=== PATIENT | female | born 1990 | race Caucasian/White ===

== ENCOUNTER 2020-12-09 15:18 | Emergency (ER) | payer OTHER, SELFPAY ==
--- NOTE | 2020-12-09 15:22 | ED.GENADULT ---
HPI - General Adult General Chief complaint: Ear Stated complaint: Possible Ear Infection Time Seen by Provider: 12/09/20 15:22 Source: patient Mode of arrival: ambulatory Limitations: no limitations History of Present Illness HPI narrative: 30-year-old female patient presents to the [facility] with complaints of right ear pain. Patient states is been an intermittent pain for the past 2 weeks. Patient states it has become more painful yesterday and today. Patient states she has also had some runny nose and stuffy nose. Patient also reports sinus issues for the last 2 weeks. Patient currently is 24 weeks . Patient states she has taken some Tylenol but denies any other medications at this time. Denies any fevers, body aches or chills. Related Data Home Medications Medication Instructions Recorded Confirmed [id number] ac-omg3 1 pkg PO DAILY 12/09/20 12/09/20 [[place] PHELAN] Allergies Allergy/AdvReac Type Severity Reaction Status Date / Time No Known Allergies Allergy Verified 12/09/20 15:20 Review of Systems Review of Systems: Narrative: CONSTITUTIONAL: Denies fever, chills, or sweats. EYES: Denies visual changes, redness, or discharge. ENT: Positive rhinorrhea, congestion, denies sore throat, positive right otalgia. CARDIOVASCULAR: Denies chest pain, palpitations, or edema. RESPIRATORY: Denies cough or dyspnea. GASTROINTESTINAL: Denies abdominal pain, nausea, vomiting, or diarrhea. GENITOURINARY: Denies dysuria or hematuria. SKIN: Denies rash or itching. MUSCULOSKELETAL: Denies back pain, joint pain, or myalgia. NEUROLOGIC: Denies headache, numbness, or weakness. PSYCHIATRIC: Denies anxiety or depression. [facility] Past Medical History Medical History (Updated 12/09/20 @ 15:39 by WILBUR Crandall) Depression Oligohydramnios Family History Family History (Updated 12/09/20 @ 15:25 by WILBUR Crandall) Other Hypertension Social History Social History Gender identity (if verbalized by the patient): Female Comments At the time of my signature I agree with nursing past medical history, surgical, social, and family history. There is no relevant family history pertinent to the presenting complaint. Exam Narrative: Exam Narrative: GENERAL: Well-appearing, well-nourished, and in no acute distress. HEAD: Normocephalic, atraumatic. EYES: PERRLA and EOMI. ENT: Nares with erythema and edema noted bilaterally with the left nare almost completely swollen shut and extremely red., no active rhinorrhea or epistaxis. Mucous membranes moist. Posterior pharynx with slight erythema but no tonsil enlargement, no exudates or lesions present. Bilateral TM with a little bit of fluid noted behind the TM but no erythema or foreign bodies noted to the canal. NECK: Supple. No lymphadenopathy CHEST: Clear to auscultation. No respiratory distress. HEART: Regular rate and rhythm. No murmur heard. Normal peripheral pulses. ABDOMEN: Soft, nontender, nondistended, normal active bowel sounds. EXTREMITIES: Normal range of motion. No edema. SKIN: Warm, dry, no rash. NEURO: No focal deficits. Alert and oriented x3. Course Vital Signs Vital signs: Vital Signs Temperature 37.0 C 12/09/20 15:30 Pulse Rate 87 12/09/20 15:30 Respiratory Rate 18 12/09/20 15:30 Blood Pressure 120/63 12/09/20 15:30 Pulse Oximetry 100 12/09/20 15:30 Temperature 37.0 C 12/09/20 15:30 Pulse Rate 87 12/09/20 15:30 Respiratory Rate 18 12/09/20 15:30 Blood Pressure 120/63 12/09/20 15:30 Pulse Oximetry 100 12/09/20 15:30 Vital signs reviewed Medical Decision Making Differential Diagnosis Differential Diagnosis: Differential diagnosis: Otitis media, otitis externa, perforated TM, infection of the outer ear, foreign body or cerumen impaction, ruptured TM, acute mastoiditis, ligament otitis externa, dehydration, pneumonia, sepsis, dental
[2020-12-09 15:30] VITALS: BP 120/63; PULSE 87; RESP 18; TEMP 37; O2SAT 100
== END 2020-12-09 15:47 | disposition home or self-care (01) ==
PROVIDERS: Emergency Provider Nurse Practitioner Family
DX: J00 Acute nasopharyngitis [common cold] (principal); J01.90 Acute sinusitis, unspecified
CPT/HCPCS: 99213; G0463

== ENCOUNTER 2021-03-19 18:22 | Inpatient (IN) | payer OTHER, SELFPAY ==
--- NOTE | 2021-03-03 13:48 | PC.NURSE ---
VERIFIED WITH OR SCHEDULE AND PATIENT--C/S ON 03/21/21 AT 1330 PATIENT GIVEN REQUISITION FOR LAB DRAW ON 03/20/21
[2021-03-19] VITALS (63 sets, daily range): BP systolic 101–146; BP diastolic 55–104; PULSE 59–203; RESP 9–20; TEMP 36.7–37.2; O2SAT 97–100; BMI 27.6
--- NOTE | 2021-03-19 18:39 | LDADM ---
This patient, Ritu Puga, was admitted to Labor/Delivery/Recovery 120 on 03/19/21 at 18:22. Plans for labor, pain management and were discussed with patient. Patient/family oriented to hospital policies and general routines including ID bracelet, bed and alarms, visiting hours, pain management, procedures, bathroom and other care routines, personal items, smoking policy, room service/diet and guest tray routines, security routines, and visiting hours. Patient/Family are encouraged to report perceived risks to care and to ask questions if they do not understand what they are told or what they should do. See OBIX for further documentation.
--- NOTE | 2021-03-19 19:05 | WPDANESEPP ---
Anes - Eval Pre Procedure Procedure: Operation Date: 03/19/21 19:05 Proposed Procedures p Repeat Section - Sarthak Martini MD Date/Time: 03/19/21 19:05 Surgeon: Jackson Preop Diagnosis: Previous section, ROM Pre Op Diagnosis: Leaking/Contractions. Patient Data Age: 30 Gender: F Height: 5 ft 2 in Weight: 68.5 kg Last Vital Signs Pulse 93 03/19/21 19:01 BP 123/72 03/19/21 19:01 Allergies Allergy/AdvReac Type Severity Reaction Status Date / Time No Known Allergies Allergy Verified 03/03/21 13:34 Home Medications Medication Instructions Recorded Confirmed Type [id number]-[id number] ac-omg3 1 pkg PO DAILY 12/09/20 03/19/21 History [[place] PHELAN] Patient hx anesthesia problems: none Family hx anesthesia problems: none PMFSH Past Medical History Medical History Depression Oligohydramnios Surgical History Surgical History Previous section Family History Family History Other Hypertension Unknown family medical history Social History Social History Smoking status: Never smoker Substance use: never Gender identity (if verbalized by the patient): Female Spiritual care concerns: No Exam Day of Procedure 03/19/21 19:05 Patient weight: normal Heart: regular rate and rhythm Lungs: clear to auscultation Airway: Mallampati scale class II Neurological: alert and oriented
[2021-03-19 19:36] LABS: Basophils Percent Auto 0.3 % (0.2-1.2); Eosinophils Absolute Auto 0.1 K/mm3 (0-0.3); Eosinophils Percent Auto 0.7 % (0-4.4); Hematocrit 36.7 % (37.0-47.0); Hemoglobin 12.3 g/dL (12.0-15.0); Immature Granulocyte Absolute 0.18 K/mm3 (0.00-0.031); Immature Granulocyte Percent A 1.7 % (0-0.5); Lymphocytes Absolute Auto 2.46 K/mm3 (0.9-3.2); Lymphocytes Percent Auto 23.5 % (18.3-44.2); Mean Corpuscular HGB Conc 33.5 g/dl (32-36); Mean Corpuscular Hemoglobin 30.2 pg (26-34); Mean Corpuscular Volume 90.2 fl (80-100); Mean Platelet Volume 12.8 fl (7.4-10.4); Monocytes Absolute Auto 0.8 K/mm3 (0.1-0.6); Monocytes Percent Auto 7.5 % (2.6-8.5); Neutrophils Absolute Auto 6.9 K/mm3 (1.3-6.7); Neutrophils Percent Auto 66.3 % (45.5-73.1); Platelet Count Result 186 k/mm3 (150-375); Red Blood Count 4.07 M/mm3 (4.2-5.4); Red Cell Distribution Width 13.7 % (11.5-14.5); White Blood Count 10.5 K/mm3 (4.5-10.0)
--- NOTE | 2021-03-19 19:45 | PM.IMHP ---
H&P: HPI History of Present Illness Date/Time: 03/19/21 19:45 Chief Complaint: SROM, contractions, prior CS x2 Narrative: Ritu is a 30yo at 38.5 who started mira at 1600, got stronger, SROM at 1745. Two prior CS at term. No complications except LGA babies, last 10# plus at 39 weeks. Review of Systems Review of Systems: All systems reviewed & are unremarkable except as noted in HPI and below PMFSH Past Medical History Medical History Depression Oligohydramnios Surgical History Surgical History Previous section Family History Family History Other Hypertension Unknown family medical history Social History Social History Smoking status: Never smoker Substance use: never Gender identity (if verbalized by the patient): Female Spiritual care concerns: No Meds Home Medications and Allergies Home Medications Medication Instructions Recorded Confirmed Type 98-qmws-fbwha ac-omg3 1 pkg PO DAILY 12/09/20 03/19/21 History [[place] PHELAN] Allergies Allergy/AdvReac Type Severity Reaction Status Date / Time No Known Allergies Allergy Verified 03/03/21 13:34 Vital Signs Vital Signs - 24 hr 03/19/21 18:46 03/19/21 19:01 03/19/21 19:16 Pulse Rate 84 93 84 Blood Pressure 125/74 123/72 131/68 03/19/21 19:31 Pulse Rate 81 Blood Pressure 146/72 H Exam Const: General: no acute distress Resp: Effort & Inspection: normal respiratory effort Auscultation: clear to auscultation bilaterally Cardio: Rate: regular rate Rhythm: regular rhythm GI: GI Palp: Yes Soft to palpation Extrem: General: normal to inspection H&P: Results Labs Labs: Short CBC 03/19/21 Range/Units 18:53 WBC 10.5 H (4.5-10.0) K/mm3 Hgb 12.3 (12.0-15.0) g/dL Hct 36.7 L (37.0-47.0) % Plt Count 186 (150-375) k/mm3 Assessment and Plan Additional Plan Plan Repeat CS Discussed RBA, pt consented, all questions answered. will proceed.
--- NOTE | 2021-03-19 19:47 | WPDHPUPDATE1 ---
History and Physical Update Update Date/Time: 03/19/21 19:47 History and Physical has been reviewed, including an updated exam of the patient. There are NO changes in the patient's condition. Risks, benefits, and alternatives have been discussed and questions answered. Patient agrees to proceed with procedure.
--- NOTE | 2021-03-19 21:13 | PM.OBPRVD ---
OB - Delivery Note Procedure Delivery date: 03/19/21 Procedure: Procedures Operation Date: 03/19/21 19:05 <No data on this case meets the specified criteria> Repeat section Intrapartal events: None Route of delivery: Specimen: Yes (placenta) Quantitative Blood Loss (ml): 590 Anesthesia type: Spinal Disposition: floor Complications: none Narrative: The patient was taken to the OR and received spinal anesthesia. She was placed in dorsal supine position with left lateral tilt. SCDs and lozano were placed. She was prepped and draped in the normal sterile fashion. A Pfannensteil skin incision was made and carried through to the underlying layer of fascia. The fascia was incised in the midline and then extended laterally using Pinto scissors. The muscles were in the midline and the peritoneum was entered bluntly. The peritoneal incision was extended inferiorly and superiorly with care to avoid the bladder. The bladder blade was then inserted, the vesicouterine peritoneum was grasped, incised with Metzenbaum scissors, and a bladder flap created. The bladder blade was reinserted. A low transverse uterine incision was made with a scalpel and extended bluntly. AROM was performed and fluid was noted to be clear. The head was delivered, followed by the remainder of the baby. The baby's oropharynx was suctioned. After 30 seconds, the cord was clamped and cut and the was handed off. Cord blood was obtained and the placenta was then removed manually. The uterus was exteriorized. A moist lap sponge was used to curette the endometrium. The uterine incision was then closed with one layer of 0-Vicryl in a running, locking fashion. Good hemostasis was noted. The posterior cul de sac was irrigated with normal saline and cleared of all clot and debris. The uterus was returned to the abdomen. Both lateral gutters were then irrigated. The rectus muscles were inspected and found to be hemostatic. The fascia was reapproximated using 0-Vicryl in running fashion. The subcutaneous tissue was irrigated with normal saline and made hemostatic with Bovie electrocautery. The subcutaneous tissue was reapproximated with a layer of running 2-0 plain gut. The skin was then closed with 4-0 Vicryl in a subcuticular fashion. Steri strips and a bandage were applied. The uterus was evacuated. The patient tolerated the procedure very well. All counts were correct. She was taken to the recovery room in good condition. [facility] Baby Date of : 03/19/21 Time of : 20:18 Weeks of gestation at delivery: 38 gender: Female Weight (pounds): 8 Weight (ounces): 10 presentation: vertex Placenta delivery description: Manual Removal cord vessel description: 3 Vessels and Delayed Cord Clamping score one minute: 8 score five minutes: 9
[2021-03-19] MEDS: OXYTOCIN 30 UNITS/NS 500 ML 30 UNITS/500 ML BAG 125 UNITS IV CONT (22:32)
--- NOTE | 2021-03-19 23:27 | OBPPTRN ---
Patient transferred to post room #286 via stretcher. Support person was not present at this time. Oriented to unit, room, information board, rooming in, admission packet and security measures. Patient verbalizes understanding.
[2021-03-20] MEDS: DEXTROSE 5%/0.45% SOD CHL 1,000 ML 125 ML IV CONT (02:43)
[2021-03-20 04:20] VITALS: BP 103/78; PULSE 72; RESP 16; TEMP 36.9; O2SAT 96
[2021-03-20] MEDS: IBUPROFEN 600 MG TABLET PO ×4 (04:40→23:54)
[2021-03-20 06:00] LABS: Basophils Percent Auto 0.4 % (0.2-1.2); Eosinophils Absolute Auto 0.1 K/mm3 (0-0.3); Eosinophils Percent Auto 0.5 % (0-4.4); Hematocrit 33.2 % (37.0-47.0); Immature Granulocyte Absolute 0.12 K/mm3 (0.00-0.031); Immature Granulocyte Percent A 1.1 % (0-0.5); Lymphocytes Absolute Auto 1.92 K/mm3 (0.9-3.2); Mean Corpuscular HGB Conc 33.1 g/dl (32-36); Mean Corpuscular Hemoglobin 30.2 pg (26-34); Mean Corpuscular Volume 91.2 fl (80-100); Mean Platelet Volume 12.3 fl (7.4-10.4); Monocytes Absolute Auto 0.8 K/mm3 (0.1-0.6); Monocytes Percent Auto 6.8 % (2.6-8.5); Neutrophils Absolute Auto 8.4 K/mm3 (1.3-6.7); Neutrophils Percent Auto 74.2 % (45.5-73.1); Platelet Count Result 150 k/mm3 (150-375); Red Blood Count 3.64 M/mm3 (4.2-5.4); Red Cell Distribution Width 13.6 % (11.5-14.5); White Blood Count 11.3 K/mm3 (4.5-10.0)
--- NOTE | 2021-03-20 07:59 | P.PNOB_ITS ---
OB - PN: Subj Subjective Date/time seen: 03/20/21 07:59 Interval history: Doing well. Taylor still in. Tolerating clears. Patient comments: no complaints and pain well controlled baby status: doing well [place] feeding status: exclusively bottle feeding Narrative: POD 1 from primary CS. Doing well. Normal lochia. OB - PN: Obj Data Labs CBC & Chem 7: 03/20/21 04:27 Labs: Laboratory Results - last 24 hr 03/19/21 03/19/21 03/20/21 18:53 18:53 04:27 WBC 10.5 H 11.3 H RBC 4.07 L 3.64 L Hgb 12.3 11.0 L Hct 36.7 L 33.2 L MCV 90.2 91.2 MCH 30.2 30.2 MCHC 33.5 33.1 RDW 13.7 13.6 Plt Count 186 150 MPV 12.8 H 12.3 H Immature Gran % (Auto) 1.7 H 1.1 H Neut % (Auto) 66.3 74.2 H Lymph % (Auto) 23.5 17.0 L [place] % (Auto) 7.5 6.8 Eos % (Auto) 0.7 0.5 Baso % (Auto) 0.3 0.4 Lymph # (Auto) 2.46 1.92 [place] # (Auto) 0.8 H 0.8 H Eos # (Auto) 0.1 0.1 Baso # (Auto) 0.0 0.0 Abs Immat Gran (auto) 0.18 H 0.12 H Absolute Neuts (auto) 6.9 H 8.4 H Absolute Nucleated RBC 0.0 0.0 Nucleated RBC % 0.0 0.0 Blood Type O Positive Antibody Screen Negative OB - PN A/P Plan day: 1 Plan: routine care Comments: Taylor out today, ambulate. UOP good. Time Spent With Patient Time: Total time spent is greater than 50% in coordination of care (as documented) at patient's floor/unit and/or counseling patient: Exam Narrative: Exam Narrative: NAD abdomen soft, appropriately tender, incision bandaged Extremities nontender with 1+ edema
[2021-03-20 08:15] VITALS: BP 110/69; PULSE 60; RESP 16; TEMP 37.2; O2SAT 95
[2021-03-20 08:45] LABS: Rapid Plasma Reagin Non-Reactive (NonReactive)
--- NOTE | 2021-03-20 08:55 | WPDANLDPN2 ---
Anes-Prog Note L&D Date/Time: 03/20/21 08:55 Comfortable throughout: section Neuraxial method: spinal Epidural/Spinal procedure site: clean & non-tender Neuro status: Neuro function grossly intact. Cardiovascular status: normal Respiratory status: normal Airway patency: baseline Mental status: baseline Post-Op hydration status: normal Vital Signs: Last Vital Signs Temp 36.9 C 03/20/21 04:20 Pulse 72 03/20/21 04:20 Resp 16 03/20/21 04:20 BP 103/78 03/20/21 04:20 Pulse Ox 96 03/20/21 04:20 Pain score (VAS): 3 I/O: Intake & Output 03/19/21 03/20/21 03/20/21 23:59 07:59 15:59 Intake Total 320 Output Total 453 250 Balance -453 70 Post-procedural complaints: none Patient feedback: Patient satisfied with anesthetic care.
--- NOTE | 2021-03-20 08:56 | WPDANLDNPN2 ---
Anes-Prog Note L&D-Neuraxial Date/Time: 03/20/21 08:56 Neuraxial medications: intrathecal PF morphine Opiod-related complaints: none Patient feedback: Patient satisfied with post-operative pain management.
[2021-03-20] MEDS: DOCUSATE SODIUM 100 MG CAPSULE PO (09:57)
[2021-03-20] MEDS: MULTIVIT/MIN/PREN/FOL AC/IRON TABLET 1 TAB PO (09:58)
[2021-03-20 12:37] VITALS: BP 124/63; PULSE 75; RESP 16; TEMP 36.8; O2SAT 100
[2021-03-20 16:40] VITALS: BP 118/73; PULSE 84; RESP 18; TEMP 36.6
[2021-03-20] MEDS: DOCUSATE SODIUM 100 MG CAPSULE (17:12)
[2021-03-20 20:20] VITALS: BP 113/67; PULSE 79; RESP 16; TEMP 36.6; O2SAT 100
[2021-03-21] MEDS: IBUPROFEN 600 MG TABLET PO (05:26)
--- NOTE | 2021-03-21 07:20 | PM.OBPNVD ---
OB - PN: Subj Subjective Date/time seen: 03/21/21 07:20 Interval history: Doing well. Taylor still in. Tolerating clears. Patient comments: no complaints baby status: doing well OB - PN: Obj Data Labs CBC & Chem 7: 03/20/21 04:27 Labs: Laboratory Results - last 24 hr 03/19/21 18:53 RPR Non-reactive OB - PN A/P Plan day: 2 Plan: routine care and discharge home Time Spent With Patient Time: Total time spent is greater than 50% in coordination of care (as documented) at patient's floor/unit and/or counseling patient: Review of Systems Review of Systems: All systems reviewed & are unremarkable except as noted in HPI and below Exam Narrative: Exam Narrative: incision CDI Const: General: cooperative Psych: Thought process: Normal thought process present Thought content: Yes Normal thought content present Insight: Good insight present (Psych) Judgement: Good judgement present (Psych)
--- NOTE | 2021-03-21 07:22 | PM.OBDSVD ---
DS: Admitting Diagnosis Admitting Diagnosis Admitting Diagnosis: repeat section OB - DS: Summary OB Procedures : None OB Procedures Intrapartum: OB Procedures: : None Peripartum Data Procedures: Procedures Operation Date: 03/19/21 19:05 Actual Procedure Side Surgeon p Section Diana Paz MD Time Spent with Patient Time attestation: Total time spent providing and/or coordinating discharge services: DS: Data Data Completed and Pending Labs on day of discharge: Labs from last 24 hours 03/19/21 18:53 RPR Non-reactive Discharge Plan Discharge Attending physician on discharge: Sarthak Martini Discharging Clinician: Taylor Jones Patient Disposition: Home, Self-Care Activity: pelvic rest Diet: regular Patient Instructions: Antibiotic Form Stand Alone Forms: General Discharge Information Follow-up/Referrals: Sarthak Martini MD [Physician] - 1 Week Discharge Medications: New hydrocodone-acetaminophen 5-325 mg Tablet 1 tablet PO Q3H PRN (Reason: Moderate Pain (4-6)) Qty: 20 RF: 0 Continued Triveen-Duo DHA 29-1-400 mg combo pack 1 pkg PO DAILY RF: 0 Date of admission: 03/19/21 18:22 Primary Care Provider: PHYSICIAN,SLEEP TECHNICIAN Admitting Provider: Sarthak Martini Attending physician on admission: Sarthak Martini Condition: Stable
[2021-03-21 08:40] VITALS: BP 106/72; PULSE 73; RESP 16; TEMP 36.2; O2SAT 99
[2021-03-21] MEDS: MULTIVIT/MIN/PREN/FOL AC/IRON TABLET 1 TAB PO (10:01)
[2021-03-21] MEDS: DOCUSATE SODIUM 100 MG CAPSULE PO (10:01)
[2021-03-21] MEDS: TETANUS,DIPHTHERIA,AC PERTUSSIS ADULT (0.5 ML) BOOSTRIX IM (10:02)
[2021-03-23 11:34] VITALS: BP 126/67; PULSE 76; RESP 22; TEMP 37.2; O2SAT 100
== END 2021-03-21 11:20 | disposition home or self-care (01) | DRG 788 ==
LOC: ANHOB2 03-21 10:44 → ANHLDR 03-22 12:24 → ANHOB2 03-22 12:24
PROVIDERS: Admitting Provider Obstetrics & Gynecology; Visit Provider Obstetrics & Gynecology
DX: O34.211 Maternal care for low transverse scar from previous cesarean delivery (principal); Z37.0 Single live birth; Z3A.38 38 weeks gestation of pregnancy; O99.344 Other mental disorders complicating childbirth; F32.9 Major depressive disorder, single episode, unspecified
CPT/HCPCS: 36415; 85025; 86592; 86850; 86900; 86901; 90715; A9270; J0131; J1885; J2274; J2370; J2405; J2590

== ENCOUNTER 2021-12-03 16:03 | Emergency (ER) | payer OTHER, SELFPAY ==
[2021-12-03 16:15] VITALS: BP 124/75; PULSE 88; RESP 17; TEMP 36.5; O2SAT 100
--- NOTE | 2021-12-03 16:42 | ED.FEMALEGU ---
HPI - Female Genitourinary General Chief complaint: Urogenital-Female Stated complaint: Possible UTI Time Seen by Provider: 12/03/21 16:30 Source: patient, RN notes reviewed and old records reviewed Mode of arrival: ambulatory Limitations: no limitations History of Present Illness HPI Narrative: 31 year old female who presents to [facility] care with complaints today of having pain from vaginal area radiating up to her right flank start this morning. Patient states also that she has some burning and urgency with urination. Patient states that she has past history of urinary tract infection. Patient denies any concern for STD's, denies any vaginal discharge, itching or odor, has not had a fever or chills or any nausea, vomiting, or diarrhea. Patient has not taken any AZO for her symptoms. MD elicited complaint: dysuria and flank pain (right) Location of symptoms: external genitalia and flank (right flank) Related Data Allergies Allergy/AdvReac Type Severity Reaction Status Date / Time No Known Allergies Allergy Verified 12/03/21 16:21 Review of Systems Review of Systems: CONSTITUTIONAL: Denies fever, chills, or sweats. EYES: Denies visual changes, redness, or discharge. ENT: Denies rhinorrhea, congestion, sore throat, or otalgia. CARDIOVASCULAR: Denies chest pain, palpitations, or edema. RESPIRATORY: Denies cough or dyspnea. GASTROINTESTINAL: Denies abdominal pain, nausea, vomiting, or diarrhea. GENITOURINARY: Positive for dysuria or hematuria, positive for right flank discomfort. SKIN: Denies rash or itching. MUSCULOSKELETAL: Denies back pain, joint pain, or myalgia. NEUROLOGIC: Denies headache, numbness, or weakness. PSYCHIATRIC: Positive for history of anxiety or depression. All systems reviewed & are unremarkable except as noted in HPI and below PMFSH Past Medical History Medical History Depression Oligohydramnios Surgical History Surgical History Previous section Family History Family History Other Hypertension Unknown family medical history Social History Social History Smoking status: Never smoker Substance use: never Gender identity (if verbalized by the patient): Female Spiritual care concerns: No Comments At time of signature, agree with nursing past medical, surgical, social and family history. There is no relevant family history pertinent to the presenting complaint Exam Narrative: GENERAL: Well-appearing, well-nourished, and in no acute distress. HEAD: Normocephalic, atraumatic. EYES: PERRLA and EOMI. ENT: Nares clear, no rhinorrhea or epistaxis. Mucous membranes moist. NECK: Supple. no lymphadenopathy CHEST: Clear to auscultation. No respiratory distress.SAO2 100% on room air HEART: Regular rate and rhythm. No murmur heard. Normal peripheral pulses. ABDOMEN: Soft, nontender to palpation, nondistended, normal active bowel sounds., some right CVA tenderness on examination EXTREMITIES: Normal range of motion. No edema. SKIN: Warm, dry, no rash. NEURO: No focal deficits. Alert and oriented x3. Course Course Level of Care: Express Care Visit Vital Signs Vital signs: Vital Signs Temperature 36.5 C 12/03/21 16:15 Pulse Rate 88 12/03/21 16:15 Respiratory Rate 17 12/03/21 16:15 Blood Pressure 124/75 12/03/21 16:15 Pulse Oximetry 100 12/03/21 16:15 Temperature 36.5 C 12/03/21 16:15 Pulse Rate 88 12/03/21 16:15 Respiratory Rate 17 12/03/21 16:15 Blood Pressure 124/75 12/03/21 16:15 Pulse Oximetry 100 12/03/21 16:15 MDM - Female Genitourinary Differential Diagnosis Differential diagnosis: Likely urinary tract infection, cervicitis, vaginitis, cystitis and other (Dysuria) Medical Records Attestation: I reviewed the patient's m
== END 2021-12-03 16:47 | disposition home or self-care (01) ==
PROVIDERS: Emergency Provider Registered Nurse
DX: N39.0 Urinary tract infection, site not specified (principal)
CPT/HCPCS: 81003; 87086; 99213; G0463

== ENCOUNTER 2023-03-05 08:39 | Emergency (ER) | payer OTHER, SELFPAY ==
[2023-03-05 08:46] VITALS: BP 112/67; PULSE 111; RESP 18; TEMP 37.3; O2SAT 100
--- NOTE | 2023-03-05 08:54 | ED.FEMALEGU ---
HPI - Female Genitourinary General Chief complaint: Urogenital-Female Stated complaint: Possible UTI Time Seen by Provider: 03/05/23 08:41 Source: patient and RN notes reviewed Limitations: no limitations History of Present Illness HPI Narrative: Patient is a 32-year-old female who presents to the [facility] with complaints of dysuria, urinary frequency, left flank pain, and urinary urgency starting yesterday. Denies hematuria. Patient states that her symptoms continue to increase in severity. She denies known fevers or chills. Denies abdominal pain, nausea, vomiting, diarrhea. Related Data Allergies Allergy/AdvReac Type Severity Reaction Status Date / Time No Known Allergies Allergy Verified 03/05/23 08:50 Review of Systems Review of Systems: CONSTITUTIONAL: Denies fever, chills, or sweats. EYES: Denies visual changes, redness, or discharge. ENT: Denies otalgia and sore throat CARDIOVASCULAR: Denies chest pain, palpitations, or edema. RESPIRATORY: Denies cough or dyspnea. GASTROINTESTINAL: Denies abdominal pain, nausea, vomiting, or diarrhea. GENITOURINARY: Reports dysuria, urinary frequency, urinary urgency, left flank pain. Denies hematuria. SKIN: Denies rash or itching. MUSCULOSKELETAL: Denies back pain, joint pain, or myalgia. NEUROLOGIC: Denies headache, numbness, or weakness. Pertinent positives per HPI. PMFSH Past Medical History Medical History Depression Oligohydramnios Surgical History Surgical History Previous section Family History Family History Other Hypertension Unknown family medical history Social History Social History Smoking status: Never smoker Substance use: never Gender identity (if verbalized by the patient): Female Spiritual care concerns: No Comments At the time of my signature, I reviewed and agree with the nursing past medical, surgical, social, and family history. There is no relevant family history pertinent to the patient complaint. Exam Narrative: GENERAL: This is a well-nourished, well-developed patient, in no apparent distress. HEAD: normocephalic, atraumatic. EYES: Sclera clear/white. Vision is grossly intact. EARS: External ears normal, auditory canals clear and without drainage. Hearing grossly intact. NOSE: External nose normal with no obvious nasal discharge, nares without redness, no rhinorrhea. THROAT: Mucous membranes moist, posterior pharynx clear. NECK: Neck supple, non-tender without lymphadenopathy, masses or thyromegaly. CARDIOVASCULAR: Regular rate and rhythm without murmurs, gallops, or rubs. RESPIRATORY: Clear to auscultation. Breath sounds equal bilaterally. No wheezes, rales, or rhonchi. GASTROINTESTINAL: Abdomen soft, non-tender, nondistended. Bowel sounds are active. No hepato-splenomegaly, or palpable masses. No guarding. SKIN: warm, intact with no suspicious lesions or rash, good texture and turgor. NEURO: awake, alert, and oriented to person, place and time. There were no obvious focal neurologic abnormalities. EXTREMITIES: No clubbing, cyanosis, or edema. No joint tenderness, effusion, or edema noted. BACK: Nontender without deformity or crepitance. Left CVA tenderness. Course Course Level of Care: Express Care Visit Vital Signs Vital signs: Vital Signs Temperature 99.2 F 03/05/23 08:46 Pulse Rate 111 H 03/05/23 08:46 Respiratory Rate 18 03/05/23 08:46 Blood Pressure 112/67 03/05/23 08:46 Pulse Oximetry 100 03/05/23 08:46 Oxygen Delivery Room Air 03/05/23 08:46 Temperature 99.2 F 03/05/23 08:46 Pulse Rate 111 H 03/05/23 08:46 Respiratory Rate 18 03/05/23 08:46 Blood Pressure 112/67 03/05/23 08:46 Pulse Oximetry 100 03/05/23 08:46 Oxygen Delivery Viola
== END 2023-03-05 09:00 | disposition home or self-care (01) ==
PROVIDERS: Emergency Provider Nurse Practitioner
DX: N39.0 Urinary tract infection, site not specified (principal)
CPT/HCPCS: 81003; 87077; 87086; 87186; 99213; G0463